=== PATIENT | male | born 2000 | race Caucasian/White ===

== ENCOUNTER 2023-03-08 17:02 | Emergency (ER) | payer OTHER ==
[2023-03-08 17:14] VITALS: PULSE 76
--- NOTE | 2023-03-08 17:39 | ERPHSYRPT ---
- History of Present Illness Time Seen by Provider: 03/08/23 17:34 Source: patient Exam Limitations: no limitations Patient Subjective Stated Complaint: Pt states "I have been messing around with a girl who has been messing around and now I have these cold sores on my mouth and a rash on my testicles." Triage Nursing Assessment: Pt presented alert and oriented X 3, skin pwd. Pt ambulates with an upright steady gait, able to speak in clear ufll sentences pt in no apparent respiratory distress. Physician History: pt had exposure 3 weeks ago which is too late for HIV PEP but can be tested with f/u with PCP for this and Herpes and Herpes Tx started, has papular vesicular rash on scrotum as well as fever blister mouth. The testicles are nontender and not swollen and without pain. No hx trauma. No discharge. Discussed herpes, HIV, GC and Clhamydia testing risks and benefits and he wishes to proceed. available results ( GC / Clhamydia discussed. and advised that the literature does not support PEP this far out for undiagnosed HIV as it does not prevent it, and that that test and herpes will come back weeks later and need to be followed up with PMD for eval and further Tx if indicated. . Discussed beginning Acyclovir for presumptive genital herpes and he wishes to begin after discussion of risks, side effects, and potential benefits. Timing/Duration: day(s) Activites at Onset: sexual activity Onset Location: scrotal Pain Radiation: none Severity of Pain-Max: none Severity of Pain-Current: none Associated Symptoms: denies symptoms Prior abdominal problems: none Sexual intercourse history: less than 2 months ago, unprotected intercourse Allergies/Adverse Reactions: No Known Drug Allergies Allergy (Verified 03/08/23 17:14) Hx Tetanus, Diphtheria Vaccination/Date Given: No Hx Influenza Vaccination/Date Given: No Hx Pneumococcal Vaccination/Date Given: No Immunizations Up to Date: Yes Travel Risk - International Travel Have you traveled outside of the country in past 3 weeks: No - Coronavirus Screening Are you exhibiting any of the following symptoms?: No Close contact with a COVID-19 positive Pt in past 14-21 Days: No - Vaccine Status Have you recieved a Covid-19 vaccination: No - Past Medical History Pertinent Past Medical History: No - Past Surgical History Past Surgical History: No - Social History Smoking Status: Former smoker Exposure to second hand smoke: Yes Drug Use: none Patient Lives Alone: No - Review of Systems Constitutional: No Fever, No Chills Eyes: No Symptoms Ears, Nose, & Throat: No Symptoms Respiratory: No Cough, No Dyspnea Cardiac: No Chest Pain, No Edema, No Syncope Abdominal/Gastrointestinal: No Abdominal Pain, No Nausea, No Vomiting, No Diarrhea Genitourinary Symptoms: No Dysuria Musculoskeletal: No Back Pain, No Neck Pain Skin: Rash Neurological: No Dizziness, No Focal Weakness, No Sensory Changes Psychological: No Symptoms Endocrine: No Symptoms Hematologic/Lymphatic: No Symptoms Immunological/Allergic: No Symptoms All Other Systems: Reviewed and Negative - Nursing Vital Signs Nursing Vital Signs: Initial Vital Signs Temperature 97.2 F 03/08/23 17:09 Pulse Rate 76 03/08/23 17:09 Respiratory Rate 20 03/08/23 17:09 Blood Pressure 141/92 03/08/23 17:09 O2 Sat by Pulse Oximetry 98 03/08/23 17:09 Pain Scale Pain Intensity 0 - Physical Exam General Appearance: no apparent distress, alert Eye Exam: PERRL/EOMI Ears, Nose, Throat Exam: pharynx normal, moist mucous membranes Neck Exam: normal inspection, supple Respiratory Exam: normal breath sounds, lungs clear Cardiovascular Exam: regular rate/rhythm, No edema Gastrointestinal/Abdomen Exam: soft, No tenderness Male Genital Exam: normal genitalia, herpes-like lesion(s), No scrotum tenderness (R), No scrotum tenderness (L), No testicular tenderness (R), No testicular tenderness (L), No urethral discharge Back Exam: normal inspection, No CVA tenderness Extremity Exam: normal inspection, normal range of motion, No pedal edema Neurologic Exam: alert, oriented x 3, cooperative, sensation nml, No motor deficits Skin Exam: normal color, warm, dry, No rash SpO2 Interpretation: normal SpO2: 99 O2 Delivery: Room Air - Course Nursing assessment & vital signs reviewed: Yes Ordered Tests: Medication Summary Discontinued Medications Generic Name Dose Route Start Last Admin Trade Name Freq PRN Reason Stop Dose Admin Acyclovir 400 mg 03/08/23 17:50 03/08/23 18:14 Acyclovir 200 Mg Capsule PO 03/08/23 17:51 400 mg STAT ONE Administration Acyclovir Confirm 03/08/23 18:14 Acyclovir 200 Mg Capsule Administered 03/08/23 18:15 Dose 400 mg .ROUTE .STK-MED ONE Lab/Rad Data: Laboratory Results 03/08/23 Range/Units 18:01 Chlamydia DNA Probe DETECTED (NEGATIVE) N.gonorrhoeae DNA Probe NOT DETECTED (NEGATIVE) - Progress Progress: improved, re-examined Counseled pt/family regarding: lab results, diagnosis, need for follow-up - Departure Departure Disposition: Home Clinical Impression: Chlamydia infection, herpes-like infection Condition: Good Critical Care Time: No Instructions: Genital herpes, Chlamydia (DC), HIV Testing Additional Instructions: see your Dr. to schedule followup and further HIV testing and treatment if needed., and also to follow-up your chlamydia and confirm your Herpes infections. return meantime if any further symptoms or concerns. Prescriptions: Acyclovir 200 mg Cap [Acyclovir] 400 mg PO TID #40 cap
[2023-03-08] MEDS ORDERED: ACYCLOVIR PO ONE (17:50)
[2023-03-08 18:12] VITALS: BP 140/80
[2023-03-08] MEDS ORDERED: ACYCLOVIR ONE (18:14)
[2023-03-08 19:34] LABS: CHLAMYDIA DNA DETECTED (NEGATIVE); GC DNA Probe NOT DETECTED (NEGATIVE)
[2023-03-08] MEDS ORDERED: Zithromax 250 MG TABLET PO ONE (20:41)
[2023-03-08] MEDS ORDERED: Zithromax 250 MG TABLET ONE (20:44)
[2023-03-08 20:49] VITALS: O2SAT 99
[2023-03-10 08:33] LABS: HSV 1 IgG, Type Spec >62.20 index (0.00-0.90); HSV 2 IgG, Type Spec <0.91 index (0.00-0.90)
[2023-03-11 11:00] LABS: HIV Screen 4th Generation wRfx Non Reactive (Non Reactive)
== END 2023-03-08 21:13 | disposition home or self-care (01) ==
LOC: ED 17:02
DX: A56.8 Sexually transmitted chlamydial infection of other sites (principal); B99.8 Other infectious disease; R21 Rash and other nonspecific skin eruption; B00.1 Herpesviral vesicular dermatitis; Z28.310 Unvaccinated for COVID-19
CPT/HCPCS: 36415; 86695; 86696; 87389; 87491; 87591; 99283; A9270-GY